=== PATIENT | female | born 1970 | race Caucasian/White ===

== ENCOUNTER → 2016-08-19 | Outpatient (REF) | payer BC ==
[2016-08-19 13:11] LABS: BASO % 0.5 % (0.0-1.0); EOS # 0.2 K/mm3 (0.0-0.50); EOS % 2.7 % (0.0-3.0); LARGE UNSTAINED CELL # 0.1 K/mm3 (0.0-0.4); LARGE UNSTAINED CELL % 0.8 % (0.0-4.0); LYMPH # 2.3 K/mm3 (1.5-4.5); LYMPH % 26.4 % (24.0-44.0); MEAN CORPUSCULAR HEMOGLOBIN 31.2 pg (27.0-33.0); MEAN CORPUSCULAR HGB CONC 33.8 g/dl (32.0-36.5); MEAN CORPUSCULAR VOLUME 92.3 fl (80.0-96.0); MONO # 0.5 K/mm3 (0.0-0.8); MONO % 5.1 % (0.0-5.0); NEUTROPHILS # 5.7 K/mm3 (1.8-7.7); NEUTROPHILS % 64.6 % (36.0-66.0); PLATELET COUNT, AUTOMATED 178 k/mm3 (150-450); RED CELL DISTRIBUTION WIDTH 13.5 % (11.5-14.5); WHITE BLOOD COUNT 8.8 K/mm3 (4.0-10.0)
[2016-08-19 13:57] LABS: ERYTHROCYTE SEDIMENTATION RATE 6 mm/hr (0-20)
[2016-08-21 00:09] LABS: Lyme Disease IgG Ab 18 kDa Ban Absent (.); Lyme Disease IgG Ab 23 kDa Ban Absent (.); Lyme Disease IgG Ab 28 kDa Ban Absent (.); Lyme Disease IgG Ab 30 kDa Ban Absent (.); Lyme Disease IgG Ab 39 kDa Ban Absent (.); Lyme Disease IgG Ab 41 kDa Ban Absent (.); Lyme Disease IgG Ab 45 kDa Ban Absent (.); Lyme Disease IgG Ab 58 kDa Ban Absent (.); Lyme Disease IgG Ab 66 kDa Ban Absent (.); Lyme Disease IgG Ab 93 kDa Ban Present (.); Lyme Disease IgG West Blot Int Negative (.); Lyme Disease IgG/IgM Antibodie 1.07 ISR (0.00-0.90); Lyme Disease IgM Ab 23 kDa Ban Present (.); Lyme Disease IgM Ab 39 kDa Ban Absent (.); Lyme Disease IgM Ab 41 kDa Ban Present (.); Lyme Disease IgM Ab Quantitati 1.25 index (0.00-0.79); Lyme Disease IgM West Blot Int Positive (.)
== END ==
LOC: M LABDRAW1 11:20
PROVIDERS: ATTEND Orthopaedic Surgery
DX: S83.91XA Sprain of unspecified site of right knee, initial encounter (principal); X58.XXXA Exposure to other specified factors, initial encounter; Y92.89 Other specified places as the place of occurrence of the external cause; Y93.89 Activity, other specified; Y99.8 Other external cause status

== ENCOUNTER → 2017-03-04 | Outpatient (REF) | payer BC | LOC: M SMT 12:55 | PROVIDERS: ATTEND Nurse Practitioner Women's Health | DX: R35.1 Nocturia (principal) ==

== ENCOUNTER → 2017-03-10 | Outpatient (CLI) | payer BC ==
--- NOTE | 2017-03-11 08:06 | REP ---
Clinical: Urinary frequency. Technique: Real time shahid scale ultrasound examination using curved array transducer. Findings: The bilateral kidneys are normal in contour, size, echogenicity and reniform shape without hydronephrosis, nephrolithiasis, cystic or renal mass lesion. Scattered renovascular calcifications are suggested. No perinephric fluid collections are identified. Right kidney measures 14.9 x 5.8 x 5.0 cm. Left kidney measures 14.0 x 8.0 x 5.3 cm. Bladder is unremarkable and demonstrates bilateral ureteral jets. Prevoid bladder measures 10.6 x 10.7 x 7.4 cm (440 ml). Postvoid bladder measures 4.4 x 5.2 x 3.0 cm (34 ml). Impression: Normal renal and bladder ultrasound. Signed by Guillermo Cleaning MD 03/11/2017 07:58 A
== END ==
LOC: M SMT 15:24
PROVIDERS: ATTEND Nurse Practitioner Women's Health
DX: R30.0 Dysuria (principal)

== ENCOUNTER → 2017-04-28 | Outpatient (CLI) | payer BC ==
--- NOTE | 2017-04-28 10:36 | REP ---
CT ABDOMEN PELVIS WITHOUT CONTRAST: 04/28/2017 COMPARISON: Renal ultrasound 03/10/2017. CLINICAL HISTORY: Left flank pain. Renal stone disease. FINDINGS: CT ABDOMEN: There are linear fiber atelectatic change in the inferior lingular segment and posterior basal segment of the right lower lobe. No effusion or acute infiltrate. No nodular mass. Heart not enlarged. No pericardial thickening or effusion. No hiatal hernia. There is no hepatosplenomegaly, focal hepatic or splenic mass nor intrahepatic biliary dilatation. Clips in the gallbladder fossa from prior cholecystectomy. There is no adjacent ascites. Pancreas grossly intact. Adrenal glands normal. There are multiple bilateral renal stones. There is a 6 mm stone upper pole right kidney without hydronephrosis or any definite stone in the collecting system. The left kidney shows several small stones also nonobstructing. Two are in the lower pole, the larger 7 mm, a smaller just under 7 mm. There are a couple of other punctate stones up to 5 mm. No hydronephrosis. No hydroureter or ureteral stone on either side. The aorta has a few atherosclerotic calcifications without aneurysm and no periaortic pathologic sized adenopathy but there are small retroperitoneal and mesenteric nodes, which I would regard as normal small bowel loops grossly intact. The abdominal portion of the colon shows stool and gas in the right transverse colon without signs of colitis or diverticulitis. Appendix is seen and normal. Small bowel loops intact. Bone windows show lumbar and lower thoracic spine and the posterior elements all grossly intact. Visualized ribs are unremarkable. CT PELVIS: SI joints, sacrum, pelvis and hips are all unremarkable. Bladder is partially filled but without wall thickness, mass or stone. No dilated distal ureters or stones. Uterus retroverted, not enlarged. Bilateral ovaries fairly symmetric with an oval low density area in the right ovary about 3.7 cm consistent with a cyst. No pelvic free fluid. Distal left colon, sigmoid and rectum intact. No ventral or inguinal hernia nor pathologic sized inguinal adenopathy. IMPRESSION: 1. There are bilateral nonobstructing renal stones in pyramids without dilatation of the collecting system, ureters or ureteral stone and no bladder calculus. 2. There are no other significant findings. The patient is status post cholecystectomy. Signed by Kirby Duenas MD 04/28/2017 08:27 P
== END ==
LOC: M RAD 08:09
PROVIDERS: ATTEND Nurse Practitioner Women's Health
DX: N20.0 Calculus of kidney (principal)

== ENCOUNTER → 2017-05-15 | Outpatient (CLI) | payer BC ==
--- NOTE | 2017-05-15 10:32 | REP ---
ULTRASOUND ABDOMEN WITH DUPLEX DOPPLER EVALUATION OF PORTAL VASCULATURE: Real-time sonographic evaluation of abdomen performed. Patient has had a prior cholecystectomy. There is no intrahepatic or extrahepatic biliary dilatation, common bile duct measuring 5 mm in diameter. There is mildly increased echotexture of the liver suggesting mild fatty infiltration. No mass is seen in the liver or pancreas. Spleen is mildly prominent in size measuring 12.9 x 6.2 x 13.5 cm. Kidneys normal in size and echotexture, right kidney measuring 15.5 x 6.0 x 6.0 cm and left kidney 14.0 x 6.3 x 5.6 cm. Multiple intrarenal calculi are seen of the left kidney, particularly in the lower pole with the largest calculus 1 cm in diameter. Visualized abdominal aorta is normal in caliber with no aneurysm. No ascites is seen. Real-time ultrasound evaluation and duplex Doppler interrogation of the portal vasculature is performed. Main portal vein is mildly dilated at 16 mm. Peak velocity in the splenic vein is 19.9 cm/s and in the superior mesenteric vein 28.1 cm/s. Peak velocity in the main portal vein is 28 cm/s and diminishes in the portal vein branches. Hepatic veins are patent with no thrombus. Peak systolic velocity of the main hepatic artery is 92.5 cm/s with resistive index 0.68. There is normal direction of flow. IMPRESSION: Status post cholecystectomy with no biliary dilatation. Mild fatty infiltration of the liver. Slightly enlarged spleen. Mild dilatation of the main portal vein with velocity upper limits of normal. Findings could indicate early portal hypertension. Left renal calculi. Signed by Zack Friedman MD 05/15/2017 11:53 A
== END ==
LOC: M RAD 08:32
PROVIDERS: ATTEND Internal Medicine Gastroenterology
DX: K76.0 Fatty (change of) liver, not elsewhere classified (principal); R16.1 Splenomegaly, not elsewhere classified; N20.0 Calculus of kidney

== ENCOUNTER → 2020-01-27 | Outpatient (CLI) | payer OTHER ==
--- NOTE | 2020-02-03 17:27 | SLEEPHOME ---
DATE: 01/27/2020 ORDERED BY: Lyn Benson Diagnostic home sleep testing was performed due to concern for the obstructive sleep apnea syndrome. For testing, a nocturnal T3 respiratory monitoring device was used. Continuous record was made of pulse, oxygen saturation, air flow, chest and abdominal pain strain, and body position. There was 9 hours and 59 minutes of data reviewed. There was 6 hours and 13 minutes marked as time in bed. During the interval marked time in bed, there were 89 respiratory events identified of 10 seconds in duration or greater for a respiratory event index of 14.3. The events were primarily obstructive. Baseline pulse rate was 76 beats per minute. Pulse rate ranged 55-101. Baseline saturation 87%. Saturations fell to 81%. Testing was performed in the both the supine and nonsupine positions. IMPRESSION: Abnormal home sleep testing with repetitive respiratory events and oxygen desaturations to 81% with a respiratory event index of 14.3 is consistent with the obstructive sleep apnea syndrome (G47.33). RECOMMENDATION: The patient should be encouraged to undergo formal sleep evaluation. [facility]
== END ==
LOC: M SLEEP HO 08:12
PROVIDERS: ATTEND Nurse Practitioner Family
DX: E66.9 Obesity, unspecified (principal); R53.83 Other fatigue